=== PATIENT | female | born 1965 | race Caucasian/White ===

== ENCOUNTER 2020-09-01 10:02 | Emergency (ER) | payer OTHER ==
[~2020-09-01] VITALS: Ht 170.2 cm; Wt 95.0 kg
[~2020-09-01 10:02] MED LIST: AUGMENTIN875TAB PO; AZITHROMYCIN500 MG PO; CIPROFLOXACN500 MG PO; CLARITIN10 M1 PO; CLINDAMYCIN150 MG PO; DEPO-MEDROL80 MG/ML IM; DIFLUCAN150 MG OR; DIFLUCAN150 MG PO; DONNATA1 OR; FLAGYL500 MG OR; FLEXERIL OR; FLORASTOR250 M1 PO; KEFLEX500 MG PO; LORTAB 5/3255 MG PO; NO HOME MEDS; OMNICEF300 MG OR; PROCTOSOL HC2.5 % RE; ROCEPHIN 2250 MG/VIA IM; TYLENOL325 MG; ZITHROMAX500 MG PO; ZOFRAN ODT4 MG PO
[2020-09-01 11:35] VITALS: BP 126/68
[2020-09-01] MEDS ORDERED: HYDROCO/APAP1 TA9 PO ×2 (11:36→11:52)
== END 2020-09-01 12:00 | disposition home or self-care (01) | DRG 563 ==
LOC: ED 10:02
DX: S92.352A Displaced fracture of fifth metatarsal bone, left foot, initial encounter for closed fracture (principal); J44.9 Chronic obstructive pulmonary disease, unspecified; W10.9XXA Fall (on) (from) unspecified stairs and steps, initial encounter; Y92.009 Unspecified place in unspecified non-institutional (private) residence as the place of occurrence of the external cause